=== PATIENT | female | born 1955 | race Caucasian/White ===

== ENCOUNTER → 2019-06-13 | Outpatient (CLI) | payer MEDICARE | END | disposition home or self-care (01) | LOC: LAB EV 12:49 → LAB SHORT 12:49 | DX: L73.9 Follicular disorder, unspecified (principal) | CPT/HCPCS: 87070; 87205 ==

== ENCOUNTER 2021-05-11 06:09 | Day surgery (SDC) | payer MEDICARE ==
[~2021-05-11] VITALS: Ht 149.9 cm; Wt 48.3 kg
--- NOTE | 2021-05-11 06:29 | NUR ---
PATIENT TRANSPORTED FROM LOBBY TO DAY SURGERY VIA W/C. Patient confirms NPO status and agrees with scheduled surgery. History, Chart, Medications and Allergies reviewed before start of procedure.
--- NOTE | 2021-05-11 06:45 | NUR ---
PATIENT GAVE ME PERMISSION TO FOLLOW HER THROUGH HER PROCEDURE A STUDENT NURSE.
[2021-05-11] MEDS ORDERED: LOSARTAN POTASS25 MG PO (06:48)
[2021-05-11] MEDS ORDERED: ACET500 (06:49)
[2021-05-11] MEDS ORDERED: Norco 5-325 Ta1 EACH PO (06:49)
--- NOTE | 2021-05-11 09:51 | NUR ---
05/11/21 0951 Sherri Santoro PATIENT ARRIVED TO OR, NOTED BRUSING ON LEFT OPERATIVE ARM FROM SHOULDER AREA TO ELBOW. ALSO NOTED A QUARTER SIZE SCAB AND SURROUNDING REDNESS ON LEFT ELBOW.
--- NOTE | 2021-05-11 13:13 | NUR ---
ASSUMED CARE OF PT FROM VIVI LORD. VSS. NO C/O PAIN OR NAUSEA. PT TOLERATING COFFEE, ORANGE JUICE, PUDDING.
--- NOTE | 2021-05-11 14:08 | NUR ---
Patient up to Ambulate independently. Gait steady. Discharge instructions reviewed with patient. Patient verbalizes understanding. Copy given to patient to take home. Discharged via wheelchair to private car for ride home.
== END 2021-05-11 23:22 | disposition home or self-care (01) ==
LOC: ORSCMMR 06:09 → ORD 07:30 → ORSCMMR 23:22
PROVIDERS: Orthopaedic Surgery
PROC: 0PSD04Z Reposition Left Humeral Head with Internal Fixation Device, Open Approach (ICD-10-PCS; principal; 2021-05-11 07:30)
DX: S42.202A Unspecified fracture of upper end of left humerus, initial encounter for closed fracture (principal); I10 Essential (primary) hypertension; Z79.899 Other long term (current) drug therapy
CPT/HCPCS: A9270; C1713; J0171; J0690; J1100; J1885; J2250; J2405; J2704; J3010; J7030; J7120

== ENCOUNTER 2023-05-23 10:12 | Emergency (ER) | payer MEDICARE ==
[~2023-05-23] VITALS: Ht 149.9 cm; Wt 42.2 kg
[~2023-05-23 10:12] MED LIST: ACET500; HYDCHL25 PO; LOSA50 PO; LOSARTAN POTASS25 MG PO; Norco 5-325 Ta1 EACH PO
[2023-05-23 10:53] LABS: BASOPHILS ABSOLUTE AUTO 0.12 K/mm3 (0.00-0.23); BASOPHILS PERCENT AUTO 1 % (0-2); EOSINOPHILS ABSOLUTE AUTO 0.16 K/mm3 (0.00-0.68); EOSINOPHILS PERCENT AUTO 2 % (0-6); Hematocrit 38.7 % (33.0-51.0); Hemoglobin 14.1 g/dL (11.5-16.0); IMMATURE GRAN ABSOLUTE AUTO 0.06 K/mm3 (0.00-0.10); IMMATURE GRAN PERCENT AUTO 1 % (0-1); LYMPHOCYTES ABSOLUTE AUTO 1.99 K/mm3 (0.84-5.20); LYMPHOCYTES PERCENT AUTO 21 % (21-46); MONOCYTES ABSOLUTE AUTO 0.89 K/mm3 (0.16-1.47); MONOCYTES PERCENT AUTO 9 % (4-13); Mean Corpuscular HGB 36.7 pg (26.0-34.0); Mean Corpuscular HGB Conc 36.4 g/dL (31.5-36.5); Mean Corpuscular Volume 101 fL (80-100); Mean Platelet Volume 9.9 fL (9.1-12.4); NEUTROPHILS PERCENT AUTO 67 % (41-73); Platelet Count 211 K/mm3 (150-400); RDW Coefficient Variation 13.1 % (11.7-14.2); Red Blood Cell Count 3.84 M/mm3 (3.80-5.20); White Blood Cell Count 9.72 K/mm3 (4.00-11.30)
[2023-05-23 11:22] LABS: Albumin, Blood 3.5 g/dL (3.4-5.0); Albumin/Globulin Ratio 0.9 (0.8-1.8); Calcium, Blood 9.3 mg/dL (8.5-10.1); Creatinine, Blood 0.59 mg/dL (0.40-1.00); Globulin, Blood 4.1 g/dL (2.2-4.0); Potassium, Blood 4.4 mmol/L (3.5-5.5); Total Protein, Blood 7.6 g/dL (6.4-8.2)
[2023-05-23] MEDS ORDERED: Toprol Xl25 MG PO (12:56)
[2023-05-23 13:35] VITALS: BP 160/79
== END 2023-05-23 13:36 | disposition home or self-care (01) ==
LOC: ER 10:12
PROVIDERS: Emergency Medicine
DX: I47.10 Supraventricular tachycardia, unspecified (principal); I10 Essential (primary) hypertension; F17.210 Nicotine dependence, cigarettes, uncomplicated; Z79.899 Other long term (current) drug therapy
CPT/HCPCS: 80053; 84443; 84484; 85025; 93005; 93010; 93242; 96360; 99285-25; J7030

== ENCOUNTER 2023-11-24 10:54 | Inpatient (IN) | payer MEDICARE ==
[~2023-11-24] VITALS: Ht 149.9 cm; Wt 41.8 kg
[~2023-11-24 10:54] MED LIST changes: +Toprol Xl25 MG PO
[2023-11-24] MEDS ORDERED: FOLI1 PO (11:06)
[2023-11-24 11:25] LABS: BASOPHILS ABSOLUTE AUTO 0.06 K/mm3 (0.00-0.23); BASOPHILS PERCENT AUTO 1 % (0-2); EOSINOPHILS ABSOLUTE AUTO 0.11 K/mm3 (0.00-0.68); EOSINOPHILS PERCENT AUTO 1 % (0-6); Hemoglobin 10.7 g/dL (11.5-16.0); IMMATURE GRAN ABSOLUTE AUTO 0.04 K/mm3 (0.00-0.10); IMMATURE GRAN PERCENT AUTO 1 % (0-1); LYMPHOCYTES ABSOLUTE AUTO 1.18 K/mm3 (0.84-5.20); LYMPHOCYTES PERCENT AUTO 14 % (21-46); MONOCYTES ABSOLUTE AUTO 0.75 K/mm3 (0.16-1.47); MONOCYTES PERCENT AUTO 9 % (4-13); Mean Corpuscular HGB 35.9 pg (26.0-34.0); Mean Corpuscular HGB Conc 36.9 g/dL (31.5-36.5); Mean Corpuscular Volume 97 fL (80-100); Mean Platelet Volume 10.4 fL (9.1-12.4); NEUTROPHILS ABSOLUTE AUTO 6.13 K/mm3 (1.96-9.15); NEUTROPHILS PERCENT AUTO 74 % (41-73); Platelet Count 140 K/mm3 (150-400); RDW Coefficient Variation 13.1 % (11.7-14.2); RDW Standard Deviation 46.5 fL (35.1-46.3); Red Blood Cell Count 2.98 M/mm3 (3.80-5.20); White Blood Cell Count 8.27 K/mm3 (4.00-11.30)
[2023-11-24 11:46] LABS: Albumin, Blood 2.6 g/dL (3.4-5.0); Albumin/Globulin Ratio 0.7 (0.8-1.8); Bilirubin, Total 1.6 mg/dL (0.1-1.0); Bun/Creatinine Ratio 18.2 (12.0-20.0); Calcium, Blood 8.2 mg/dL (8.5-10.1); Creatinine, Blood 0.61 mg/dL (0.40-1.00); Globulin, Blood 3.9 g/dL (2.2-4.0); Potassium, Blood 4.6 mmol/L (3.5-5.5); Total Protein, Blood 6.5 g/dL (6.4-8.2)
[2023-11-24] MEDS ORDERED: Pantoprazole Sodium 40 MG Injection IV ONE (12:05)
[2023-11-24] MEDS ORDERED: NS 1,000 ML IV SCH (12:10)
[2023-11-24] MEDS ORDERED: Ipratropium/Albuterol SulF 2.5-0.5MG/3 ML Amp INH ONE (12:20)
[2023-11-24] MEDS ORDERED: NS 1,000 ML IV ONE ×2 (16:40→17:01)
[2023-11-24] MEDS ORDERED: Midodrine 5 MG Tab PO ONE (17:00)
[2023-11-24 17:50] VITALS: BP 73/52
[2023-11-24] MEDS ORDERED: Midodrine 5 MG Tab PO SCH (18:00)
[2023-11-24 18:14] VITALS: BP 134/68
--- NOTE | 2023-11-24 18:53 | NUR ---
SHIFT SUMMARY PT TRANSFERED FROM ED AROUND 1733. PT A&OX4, LUNGS NOTED TO BE WHEEZY/DIMINISHED. ABRASION NOTED TO R KNEE 4.5CM X 3CM. PT STATED THAT SHE CAN NOT GET OUT OF BED D/T BEING SO WEAK. PT SETTLED IN ROOM AND EATING SUPPER. CONT FLUIDS AT 200/HR. PT BP NOTED TO COME BACK UP PHYSICIAN NOTIFIED AND CAME AND VISITED WITH PT.
[2023-11-24 19:39] VITALS: BP 118/60
[2023-11-24] MEDS ORDERED: Silver Sulfadiazine 1% Cream 25 APPLIC/25 GM Tube TOP SCH (21:00)
[2023-11-24] MEDS ORDERED: Apixaban 5 MG Tab PO SCH (21:00)
[2023-11-25 04:31] VITALS: BP 120/68
[2023-11-25 05:12] LABS: BASOPHILS ABSOLUTE AUTO 0.05 K/mm3 (0.00-0.23); BASOPHILS PERCENT AUTO 1 % (0-2); EOSINOPHILS ABSOLUTE AUTO 0.22 K/mm3 (0.00-0.68); EOSINOPHILS PERCENT AUTO 3 % (0-6); Hematocrit 22.6 % (33.0-51.0); Hemoglobin 8.3 g/dL (11.5-16.0); IMMATURE GRAN ABSOLUTE AUTO 0.04 K/mm3 (0.00-0.10); IMMATURE GRAN PERCENT AUTO 1 % (0-1); LYMPHOCYTES ABSOLUTE AUTO 1.42 K/mm3 (0.84-5.20); LYMPHOCYTES PERCENT AUTO 22 % (21-46); MONOCYTES ABSOLUTE AUTO 0.53 K/mm3 (0.16-1.47); MONOCYTES PERCENT AUTO 8 % (4-13); Mean Corpuscular HGB 35.9 pg (26.0-34.0); Mean Corpuscular HGB Conc 36.7 g/dL (31.5-36.5); Mean Corpuscular Volume 98 fL (80-100); Mean Platelet Volume 11.3 fL (9.1-12.4); NEUTROPHILS ABSOLUTE AUTO 4.27 K/mm3 (1.96-9.15); NEUTROPHILS PERCENT AUTO 65 % (41-73); Platelet Count 104 K/mm3 (150-400); RDW Coefficient Variation 13.2 % (11.7-14.2); RDW Standard Deviation 47.6 fL (35.1-46.3); Red Blood Cell Count 2.31 M/mm3 (3.80-5.20); White Blood Cell Count 6.53 K/mm3 (4.00-11.30)
[2023-11-25 05:31] LABS: International Normalized Ratio 1.28; Prothrombin Time Results 13.4 Sec (9.7-11.5)
--- NOTE | 2023-11-25 06:47 | NUR ---
Shift Summary Pt up to the bathroom once with assist and up once to the BSC. No complaints of any discomfort. She finished her infusion of NS and IV currently saline locked. She slept well t/o most of the night. Pt still very weak. No issues with hypotension this shift.
[2023-11-25 06:57] VITALS: BP 114/66
[2023-11-25 07:13] LABS: Albumin, Blood 2.1 g/dL (3.4-5.0); Albumin/Globulin Ratio 0.7 (0.8-1.8); Bilirubin, Total 1.3 mg/dL (0.1-1.0); Bun/Creatinine Ratio 19.7 (12.0-20.0); Calcium, Blood 7.1 mg/dL (8.5-10.1); Creatinine, Blood 0.46 mg/dL (0.40-1.00); Phosphorus, Blood 2.2 mg/dL (2.5-4.9); Potassium, Blood 3.6 mmol/L (3.5-5.5); Total Protein, Blood 5.1 g/dL (6.4-8.2)
--- NOTE | 2023-11-25 07:17 | NUR ---
Critical Lab Value - Mg 1.0 Rcvd call at 0715 that pt has a critical lab value for magnisium and 1.0. Passed this information to oncoming RN, Enma Santoyo.
[2023-11-25] MEDS ORDERED: Nicotine 21 MG PATCH TOP SCH (09:00)
[2023-11-25] MEDS ORDERED: Metoprolol Succinate 25 MG TABCR PO SCH (09:00)
[2023-11-25] MEDS ORDERED: Potassium Phosphate Dibasic 15 MM in Dextrose 5% 250 ML IV STA (09:34)
[2023-11-25] MEDS ORDERED: Magnesium Sulf 2 GM/Water 50ML 50 ML IV ONE (09:35)
[2023-11-25] MEDS ORDERED: NS 250 ML IV PRN (11:00)
[2023-11-25 15:50] VITALS: BP 150/68
--- NOTE | 2023-11-25 17:42 | NUR ---
SHIFT SUMMARY PT CONT LEVEL OF CARE WITH NO ACUTE CHANGES NOTED. PT IS A7O X4 AND COOPERATIVE WITH STAFF. ASSIST X1 WITH FWW TO RESTROOM BM NOTED TODAY. PT DENIES PAIN OR DISCOMFORT THIS SHIFT. PT NOTED TO WORK WITH THERAPY TODAY AND OT STATED TO THIS NURSE THAT THEY WOULD BE RECOMMENDING HOME HEALTH FOR PT.
[2023-11-25 19:25] VITALS: BP 106/73
[2023-11-26 03:14] VITALS: BP 115/62
--- NOTE | 2023-11-26 06:02 | NUR ---
Shift Summary No acute changes, pt slept well t/o the night. Plan is to discharge soon with home health.
[2023-11-26 07:23] VITALS: BP 138/73
[2023-11-26] MEDS ORDERED: Amoxicillin/Clavulanate K 875 MG Tab PO SCH (09:00)
[2023-11-26] MEDS ORDERED: Azithromycin 250 MG Tab PO SCH (09:00)
[2023-11-26 16:32] VITALS: BP 145/76
--- NOTE | 2023-11-26 16:33 | NUR ---
SHIFT SUMMARY PT RESTING QUIETLY AT START OF SHIFT. WOKE EASILY FOR REPORT. UP TO BSC TO VOID WITH 1P ASSIST. PT IS WEAK, BUT FEELING A LITTLE BETTER THRU OUT THE DAY. CONTINENT OF BOWEL AND BLADDER. DR VILLALOBOS IN TO SEE PT EARLY THIS AM. PO ABX STARTED FOR PNM; LUNGS T/O COARSE. PT OFFERED SHOWER THIS AM, BUT DECLINED TO PRESENT. ABLE TO MAKE NEEDS KNOWN.
[2023-11-26 19:21] VITALS: BP 140/70
[2023-11-27 04:43] VITALS: BP 141/70
--- NOTE | 2023-11-27 04:49 | NUR ---
SHIFT SUMMARY TAMARA WAS ALERT AND FULLY ORIENTED ON ASSESSMENT. PT RESTING IN BED, NO NEW COMPLAINTS THIS SHIFT, NO ACUTE EVENTS OR CHANGES TO PT CONDITION PT BANDAGE TO R KNEE REPLACED. PT RESTING IN BED AT LOW POSITION WITH CALL LIGHT IN REACH. POTENTIAL DX TODAY ON DAYSHIFT
[2023-11-27 05:20] LABS: BASOPHILS ABSOLUTE AUTO 0.07 K/mm3 (0.00-0.23); BASOPHILS PERCENT AUTO 1 % (0-2); EOSINOPHILS ABSOLUTE AUTO 0.26 K/mm3 (0.00-0.68); EOSINOPHILS PERCENT AUTO 4 % (0-6); Hematocrit 24.3 % (33.0-51.0); Hemoglobin 8.8 g/dL (11.5-16.0); IMMATURE GRAN ABSOLUTE AUTO 0.03 K/mm3 (0.00-0.10); IMMATURE GRAN PERCENT AUTO 1 % (0-1); LYMPHOCYTES ABSOLUTE AUTO 1.44 K/mm3 (0.84-5.20); LYMPHOCYTES PERCENT AUTO 22 % (21-46); MONOCYTES ABSOLUTE AUTO 0.67 K/mm3 (0.16-1.47); MONOCYTES PERCENT AUTO 10 % (4-13); Mean Corpuscular HGB 36.4 pg (26.0-34.0); Mean Corpuscular HGB Conc 36.2 g/dL (31.5-36.5); Mean Corpuscular Volume 100 fL (80-100); Mean Platelet Volume 11.2 fL (9.1-12.4); NEUTROPHILS ABSOLUTE AUTO 4.09 K/mm3 (1.96-9.15); NEUTROPHILS PERCENT AUTO 62 % (41-73); Platelet Count 108 K/mm3 (150-400); RDW Coefficient Variation 13.5 % (11.7-14.2); RDW Standard Deviation 49.4 fL (35.1-46.3); Red Blood Cell Count 2.42 M/mm3 (3.80-5.20); White Blood Cell Count 6.56 K/mm3 (4.00-11.30)
[2023-11-27 05:48] LABS: Albumin, Blood 2.1 g/dL (3.4-5.0); Albumin/Globulin Ratio 0.6 (0.8-1.8); Bilirubin, Total 1.1 mg/dL (0.1-1.0); Bun/Creatinine Ratio 11.4 (12.0-20.0); Calcium, Blood 7.5 mg/dL (8.5-10.1); Creatinine, Blood 0.44 mg/dL (0.40-1.00); Globulin, Blood 3.7 g/dL (2.2-4.0); Phosphorus, Blood 2.8 mg/dL (2.5-4.9); Potassium, Blood 3.6 mmol/L (3.5-5.5); Total Protein, Blood 5.8 g/dL (6.4-8.2)
[2023-11-27 05:50] LABS: Magnesium, Blood 1.1 mg/dL (1.6-2.4)
[2023-11-27 07:46] VITALS: BP 149/73
[2023-11-27] MEDS ORDERED: Magnesium Sulf 2 GM/Water 50ML 50 ML IV ONE (09:45)
[2023-11-27] MEDS ORDERED: Potassium Phosphate Dibasic 20 MM in Dextrose 5% 500 ML IV ONE (09:45)
[2023-11-27] MEDS ORDERED: Acetaminophen 325 MG TABLET PO PRN (12:45)
[2023-11-27 15:05] VITALS: BP 139/72
--- NOTE | 2023-11-27 16:21 | NUR ---
SHIFT SUMMARY PT AWAKE AT START OF SHIFT. WATCHING TV AND TALKING ON PHONE. DR VILLALOBOS IN EARLY TO SEE PT. LUNGS T/O IMPROVED FROM YESTERDAY. PT REMAINS WEAK, BUT SLOWLY IMPROVING. UP TO BSC WITH 1P ASSIST. C/O SANTIAGO THIS AFTERNOON; DR VILLALOBOS NOTIFIED FOR TYLENOL; ORDERED AND GIVEN PER EMAR. PT HAVING CONSTIPATION YESTERDAY WITH VERY FIRM SMALL STOOLS. PT NOW STARTING TO HAVE SM LOOSE STOOLS; DR VILLALOBOS NOTIFIED. NEW ORDERS PLACED. VISITORS TO THRU OUT THE DAY. WATCHING TV AND TALKING ON PHONE AT THIS TIME. CALL LT IN REACH.
[2023-11-27 19:28] VITALS: BP 151/72
[2023-11-27] MEDS ORDERED: Lactobacil 2-S.Thermo-Bifido 1 1 Cap PO SCH (21:00)
[2023-11-28 00:15] VITALS: BP 158/79
--- NOTE | 2023-11-28 05:00 | NUR ---
SHIFT SUMMARY AT HS, PT.A&O X3-4, ABLE TO MAKE HER NEEDS KNOWN, AND COOP WITH CARE. FEW HRS LATER, PT. C/O PAIN LOWER ABDOMEN AREA, AND APPEARED MORE CONFUSED. UNABLE TO STANDBY ASSIT WITH 2-PERSONS TO BEDSIDE COMMODE D/T WEAKNESS AND CONFUSION AND FOR SAFETY. BLADDER SCAN >380. PUREWICK PLACED. NO VOIDING. RN NOTIFIED, RN CALLED ASSEMBLER WATCH TRAIN HOSPITALIST. 1 X STRAIGHT CATH ORDER RECEIVED. PT. REQUESTING TO USE BEDSIDE COMMODE, PT. THEN VOIDED, MIXED WITH LIQUID BROWNISH STOOL, NOT ABLE TO MEASURE THE VOID AMOUNT. POST VOID SCANNER 130MLS. PT. WEARING PULL UPS. PT. MORE ORIENTED AFTER VOIDING. PT.APPEARS NOT TO HAVE PAIN. NO ACUTE DISTRESS NOTED/REPORTED THERE AFTER. WILL HANDOFF TO THE INCOMING NURSE. BED ALARM FOR SAFETY, CALL LIGHT IN REACH.
[2023-11-28 05:03] LABS: BASOPHILS ABSOLUTE AUTO 0.05 K/mm3 (0.00-0.23); BASOPHILS PERCENT AUTO 1 % (0-2); EOSINOPHILS ABSOLUTE AUTO 0.26 K/mm3 (0.00-0.68); EOSINOPHILS PERCENT AUTO 4 % (0-6); Hematocrit 23.9 % (33.0-51.0); Hemoglobin 8.7 g/dL (11.5-16.0); IMMATURE GRAN ABSOLUTE AUTO 0.02 K/mm3 (0.00-0.10); IMMATURE GRAN PERCENT AUTO 0 % (0-1); LYMPHOCYTES ABSOLUTE AUTO 1.25 K/mm3 (0.84-5.20); LYMPHOCYTES PERCENT AUTO 20 % (21-46); MONOCYTES ABSOLUTE AUTO 0.68 K/mm3 (0.16-1.47); MONOCYTES PERCENT AUTO 11 % (4-13); Mean Corpuscular HGB 35.7 pg (26.0-34.0); Mean Corpuscular HGB Conc 36.4 g/dL (31.5-36.5); Mean Corpuscular Volume 98 fL (80-100); Mean Platelet Volume 10.6 fL (9.1-12.4); NEUTROPHILS PERCENT AUTO 64 % (41-73); Platelet Count 121 K/mm3 (150-400); RDW Coefficient Variation 13.6 % (11.7-14.2); Red Blood Cell Count 2.44 M/mm3 (3.80-5.20); White Blood Cell Count 6.36 K/mm3 (4.00-11.30)
[2023-11-28 05:17] LABS: Magnesium, Blood 1.4 mg/dL (1.6-2.4)
[2023-11-28 05:18] LABS: Anion Gap 14 mmol/L (3-11); Blood Urea Nitrogen 4 mg/dL (8-24); Bun/Creatinine Ratio 9.9 (12.0-20.0); CO2, Blood 20 mmol/L (21-32); Calcium, Blood 7.6 mg/dL (8.5-10.1); Chloride, Blood 97 mmol/L (98-108); Creatinine, Blood 0.41 mg/dL (0.40-1.00); Glomerular Filtration Rate 106 (60-); Glucose, Blood 73 mg/dL (70-99); Phosphorus, Blood 3.4 mg/dL (2.5-4.9); Potassium, Blood 3.7 mmol/L (3.5-5.5); Sodium, Blood 127 mmol/L (136-145)
[2023-11-28 07:16] VITALS: BP 147/73
[2023-11-28] MEDS ORDERED: Morphine Sulfate 4 MG/1 ML Injection IV ONE (11:35)
[2023-11-28 16:33] VITALS: BP 149/67
[2023-11-28 18:47] LABS: Bun/Creatinine Ratio 7.4 (12.0-20.0); Creatinine, Blood 0.41 mg/dL (0.40-1.00); Potassium, Blood 4.4 mmol/L (3.5-5.5)
--- NOTE | 2023-11-28 19:31 | NUR ---
no acute changes. pt calls appropriately. able to make needs known. u/a pending. likely discharge tomorrow pending results. sba to bedside commode
[2023-11-28] MEDS ORDERED: Magnesium Sulf 2 GM/Water 50ML 50 ML IV STA (19:50)
[2023-11-28 20:46] VITALS: BP 156/70
[2023-11-29 03:31] VITALS: BP 143/82
--- NOTE | 2023-11-29 04:47 | NUR ---
SHIFT SUMMARY 57 YR F ADMITTED ON 11/24/23. DNR. NO ACUTE CHANGES THIS SHIFT. PT HAS HAD NO C/O PAIN OR DISCOMFORT THIS SHIFT. SHE IS A@O X 4 AND CALLS APPROPRIATELY FOR ASSISTANCE WITH BATHROOMING.
[2023-11-29 05:05] LABS: BASOPHILS ABSOLUTE AUTO 0.07 K/mm3 (0.00-0.23); BASOPHILS PERCENT AUTO 1 % (0-2); EOSINOPHILS ABSOLUTE AUTO 0.26 K/mm3 (0.00-0.68); EOSINOPHILS PERCENT AUTO 5 % (0-6); Hematocrit 25.6 % (33.0-51.0); Hemoglobin 9.4 g/dL (11.5-16.0); IMMATURE GRAN ABSOLUTE AUTO 0.02 K/mm3 (0.00-0.10); IMMATURE GRAN PERCENT AUTO 0 % (0-1); LYMPHOCYTES ABSOLUTE AUTO 1.48 K/mm3 (0.84-5.20); LYMPHOCYTES PERCENT AUTO 26 % (21-46); MONOCYTES ABSOLUTE AUTO 0.83 K/mm3 (0.16-1.47); MONOCYTES PERCENT AUTO 14 % (4-13); Mean Corpuscular HGB Conc 36.7 g/dL (31.5-36.5); Mean Corpuscular Volume 98 fL (80-100); Mean Platelet Volume 10.4 fL (9.1-12.4); NEUTROPHILS ABSOLUTE AUTO 3.11 K/mm3 (1.96-9.15); NEUTROPHILS PERCENT AUTO 54 % (41-73); Platelet Count 144 K/mm3 (150-400); RDW Standard Deviation 49.5 fL (35.1-46.3); Red Blood Cell Count 2.61 M/mm3 (3.80-5.20); White Blood Cell Count 5.77 K/mm3 (4.00-11.30)
[2023-11-29 06:02] LABS: Albumin, Blood 2.1 g/dL (3.4-5.0); Albumin/Globulin Ratio 0.5 (0.8-1.8); Bilirubin, Total 0.8 mg/dL (0.1-1.0); Calcium, Blood 8.1 mg/dL (8.5-10.1); Creatinine, Blood 0.43 mg/dL (0.40-1.00); Globulin, Blood 3.9 g/dL (2.2-4.0); Potassium, Blood 3.6 mmol/L (3.5-5.5)
[2023-11-29 07:22] VITALS: BP 142/76
[2023-11-29 13:00] VITALS: BP 141/75
--- NOTE | 2023-11-29 15:11 | NUR ---
MD ORDERED REFERRAL TO [facility] FOR LUNG AND LIVER MASS BIOPSY. RADIOLOGY CONTACTED AND ORDER PLACED FOR CT WITH LIVER BIOPSY, MD AWARE. RADIOLOGY INFORMED THAT PATIENT HAD ELIQUIS THIS AM AROUND 0815. MD ORDERED TO HOLD ELIQUIS UNTIL BIPOSY IS OBTAINED.
[2023-11-29 16:28] VITALS: BP 148/82
--- NOTE | 2023-11-29 18:15 | NUR ---
SHIFT SUMMARY PATIENT A/OX4, ABLE TO MAKE NEEDS KNOWN. INCONTINENT OF BOWEL WITH LOOSE STOOLS. PATIENT 1 PERSON TRANSFER WITH [facility]. ELIQUIS ON HOLD UNTIL BIOPSY TO LIVER OBTAINED. PATIENT'S FAMILY CALLED TO INFORM THAT THERE IS A FAMILY HISTORY OF HEREDITARY HEMOCHROMOTOSIS. NO OTHER COCNERNS AT THIS TIME.
[2023-11-29 19:56] VITALS: BP 148/80
[2023-11-30 02:16] VITALS: BP 126/78
--- NOTE | 2023-11-30 04:01 | NUR ---
SHIFT SUMMARY PT. IS A&O X4, SOMETIMES FORGETFUL, COOP WITH CARE, AND ABLE TO MAKE HER NEEDS KNOWN. NO ACUTE CHANGES/EVENTS/DISTRESS NOTED/REPORTED DURING THIS SHIFT. PT. HAS BEEN RESTING EYES CLOSED, VSS, W/O ANY RESPIRATORY OR CARDIAC DISTRESS. POSSIBLE LIVER BIOPSY TODAY. WILL HANDOFF TO THE INCOMING SHIFT NURSE, BED AT LOWEST POSITION, CALL LIGHT WITHIN REACH.
[2023-11-30 04:40] LABS: BASOPHILS ABSOLUTE AUTO 0.04 K/mm3 (0.00-0.23); BASOPHILS PERCENT AUTO 1 % (0-2); EOSINOPHILS ABSOLUTE AUTO 0.21 K/mm3 (0.00-0.68); EOSINOPHILS PERCENT AUTO 4 % (0-6); Hematocrit 23.3 % (33.0-51.0); Hemoglobin 8.5 g/dL (11.5-16.0); IMMATURE GRAN ABSOLUTE AUTO 0.02 K/mm3 (0.00-0.10); IMMATURE GRAN PERCENT AUTO 0 % (0-1); LYMPHOCYTES ABSOLUTE AUTO 1.44 K/mm3 (0.84-5.20); LYMPHOCYTES PERCENT AUTO 28 % (21-46); MONOCYTES ABSOLUTE AUTO 0.81 K/mm3 (0.16-1.47); MONOCYTES PERCENT AUTO 16 % (4-13); Mean Corpuscular HGB Conc 36.5 g/dL (31.5-36.5); Mean Corpuscular Volume 99 fL (80-100); Mean Platelet Volume 10.4 fL (9.1-12.4); NEUTROPHILS ABSOLUTE AUTO 2.58 K/mm3 (1.96-9.15); NEUTROPHILS PERCENT AUTO 51 % (41-73); Platelet Count 144 K/mm3 (150-400); RDW Coefficient Variation 13.9 % (11.7-14.2); RDW Standard Deviation 49.6 fL (35.1-46.3); Red Blood Cell Count 2.36 M/mm3 (3.80-5.20)
--- NOTE | 2023-11-30 05:04 | NUR ---
PT.HAS BEEN NPO AFTER MIDNIGHT, IF NEEDED FOR LIVER BIOPSY.
[2023-11-30 05:42] LABS: Albumin, Blood 2.1 g/dL (3.4-5.0); Albumin/Globulin Ratio 0.6 (0.8-1.8); Bilirubin, Total 0.7 mg/dL (0.1-1.0); Bun/Creatinine Ratio 4.8 (12.0-20.0); Calcium, Blood 8.1 mg/dL (8.5-10.1); Creatinine, Blood 0.42 mg/dL (0.40-1.00); Globulin, Blood 3.6 g/dL (2.2-4.0); Potassium, Blood 3.3 mmol/L (3.5-5.5); Total Protein, Blood 5.7 g/dL (6.4-8.2)
[2023-11-30 07:56] VITALS: BP 132/76
[2023-11-30] MEDS ORDERED: Thiamine HCl 100 MG Tab PO SCH (09:00)
--- NOTE | 2023-11-30 11:03 | NUR ---
TELEPHONE ORDERS CALLED RADIOLOGY TO CONFIRM LIVER BIOPSY TODAY FOR PATIENT. MECHANICAL SERVICE TECHNICIAN STATED PROCEDURE WAS CANCELLED DUE TO PATIENT RECIEVING ELIQUIS YESTERDAY MORNING. ELIQUIS HAS BEEN HELD SINCE YESTERDAY AM. SPOKE WITH MD AND NEW ORDERS FOR ULTRASOUND LIVER BIOPSY OBTAINED. ALSO NOTIFIED MD OF PATIENT'S HEMORRHOIDS AND LEVATED BP WITH SCHEDULED MIDODRINE TID. MIDODRINE DISCONTINUED AND PREPARATION H ORDERED PRN.
[2023-11-30] MEDS ORDERED: Phenyleph/Mineral Oil/Petrolat 1 APPLIC/57 GM Tube PR SCH (11:05)
--- NOTE | 2023-11-30 11:30 | NUR ---
SPOKE WITH SHABBIR FROM RADIOLOGY IN REGARDS TO ULTRASOUND LIVER BIOPSY. DR. DOMÍNGUEZ REQUESTING TO SPEAKE WITH DR. TORREZ TO DISCUSS BIOPSY ORDER. SHABBIR STATED SHE IS GETTING THEM IN CONTACT TO DISCUSS. DUE TO ELIQUIS BEING GIVEN YESTERDAY, BIOPSY WILL NOT BE OBTAINED TODAY.
[2023-11-30 15:52] VITALS: BP 150/79
[2023-11-30 19:49] VITALS: BP 149/83
[2023-12-01 05:10] LABS: BASOPHILS ABSOLUTE AUTO 0.09 K/mm3 (0.00-0.23); BASOPHILS PERCENT AUTO 2 % (0-2); EOSINOPHILS ABSOLUTE AUTO 0.23 K/mm3 (0.00-0.68); EOSINOPHILS PERCENT AUTO 5 % (0-6); Hematocrit 24.7 % (33.0-51.0); Hemoglobin 8.9 g/dL (11.5-16.0); IMMATURE GRAN ABSOLUTE AUTO 0.01 K/mm3 (0.00-0.10); IMMATURE GRAN PERCENT AUTO 0 % (0-1); LYMPHOCYTES ABSOLUTE AUTO 1.42 K/mm3 (0.84-5.20); LYMPHOCYTES PERCENT AUTO 29 % (21-46); MONOCYTES ABSOLUTE AUTO 0.65 K/mm3 (0.16-1.47); MONOCYTES PERCENT AUTO 13 % (4-13); Mean Corpuscular HGB 36.2 pg (26.0-34.0); Mean Corpuscular Volume 100 fL (80-100); Mean Platelet Volume 10.4 fL (9.1-12.4); NEUTROPHILS ABSOLUTE AUTO 2.53 K/mm3 (1.96-9.15); NEUTROPHILS PERCENT AUTO 51 % (41-73); Platelet Count 153 K/mm3 (150-400); RDW Standard Deviation 51.4 fL (35.1-46.3); Red Blood Cell Count 2.46 M/mm3 (3.80-5.20); White Blood Cell Count 4.93 K/mm3 (4.00-11.30)
[2023-12-01 05:35] VITALS: BP 131/72
[2023-12-01 05:50] LABS: Albumin, Blood 2.1 g/dL (3.4-5.0); Albumin/Globulin Ratio 0.6 (0.8-1.8); Bilirubin, Total 0.7 mg/dL (0.1-1.0); Bun/Creatinine Ratio 6.8 (12.0-20.0); Calcium, Blood 7.9 mg/dL (8.5-10.1); Creatinine, Blood 0.44 mg/dL (0.40-1.00); Globulin, Blood 3.7 g/dL (2.2-4.0); Potassium, Blood 3.2 mmol/L (3.5-5.5); Total Protein, Blood 5.8 g/dL (6.4-8.2)
--- NOTE | 2023-12-01 06:34 | NUR ---
NO ACUTE EVENTS OR DISTRESS DURING THIS SHIFT, BED AT THE LOWEST POSITION, CALL LIGHT IN REACH. PT. DENIES ANY PAIN OR DISCOMFORT. NO COMPLAINTS OFFERED PER PT.
[2023-12-01 07:21] VITALS: BP 143/75
--- NOTE | 2023-12-01 13:27 | NUR ---
SPOKE WITH DR. COLVIN IN REGARDS TO PLAN FOR PT. DR. COLVIN ASKED TO CALL IR TO ASK IF PT WAS OF SCHEDULE FOR BX. AFTER FURTHER REVIEW INTO CHART BX WAS CANCELLED INSTEAD OF POSTPONED. DR. COLVIN UPDATED AND GAVE TELEPHONE ORDER FOR LIVER BX TODAY. SPOKE WITH RN FROM IR STATTING DR. ODONNELL WOULD LOOK OVER PT CHART AND WOULD GET BACK TO ME IN 1-1.5 HOURS. TOLD IR RN PT HAS NOT TAKEN ELIQUIS SINCE AM MEDS ON 11/29/23. AWAITING UPDATE AT THIS TIME. DR. COLVIN AWARE OF PLAN.
[2023-12-01] MEDS ORDERED: Potassium Chloride 20 MEQ TabCR PO ONE (15:00)
[2023-12-01] MEDS ORDERED: AMOCLA875 PO (15:01)
[2023-12-01] MEDS ORDERED: SILVADENE20 G8 TOP (15:02)
[2023-12-01] MEDS ORDERED: ELIQUIS5 M2 PO (15:02)
[2023-12-01] MEDS ORDERED: NICO21TP TOP (15:02)
--- NOTE | 2023-12-01 15:36 | NUR ---
DISCHARGE: PT D/C @1530 VIA WHEELCHAIR WITH SO. MEDICATIONS FAXED TO [facility] [address]. IV REMOVED BY RESOURCING CONSULTANT W/O COMPLICATIONS. PT HAS FOLLOW-UP APPOINTMENT WITH PCP ON 12/08/23 @4:20 PM. MEDICATIONS EXPLAINED TO PT. PT TO RECEIVE PET/CT SCAN OUTPT. NO QUESTIONS AT TIE OF D/C.
[2023-12-06] MEDS ORDERED: Lipitor10 MG PO (13:20)
== END 2023-12-01 15:30 | disposition home health service (06) | DRG 308 ==
LOC: ER 10:54 → MEDS 13:16
PROVIDERS: Emergency Medicine; Internal Medicine; ADMIT Family Medicine
DX: I48.91 Unspecified atrial fibrillation (principal); J18.9 Pneumonia, unspecified organism; E87.1 Hypo-osmolality and hyponatremia; K76.0 Fatty (change of) liver, not elsewhere classified; E83.42 Hypomagnesemia; Z66 Do not resuscitate; M41.9 Scoliosis, unspecified; K70.31 Alcoholic cirrhosis of liver with ascites; R91.1 Solitary pulmonary nodule; F10.10 Alcohol abuse, uncomplicated; L08.9 Local infection of the skin and subcutaneous tissue, unspecified; I10 Essential (primary) hypertension; F17.200 Nicotine dependence, unspecified, uncomplicated; D64.9 Anemia, unspecified; D69.6 Thrombocytopenia, unspecified; E87.8 Other disorders of electrolyte and fluid balance, not elsewhere classified; S81.011A Laceration without foreign body, right knee, initial encounter; W19.XXXA Unspecified fall, initial encounter; M51.35 Other intervertebral disc degeneration, thoracolumbar region
CPT/HCPCS: 36415; 71046; 71260; 74160; 74183; 80048; 80053; 80069; 82105; 82607; 82746; 83735; 83880; 83930; 83935; 84100; 84145; 84300; 84484; 85025; 85610; 93005; 93010; 93306; 94644; 94664; 96361; 96374; 97110; 97116; 97161; 97165; 97530; 97530-CQ; 97535; 99285-25; A9270; A9581; C9113; J2270; J3475; J7030; J7050; J7060; Q9967

== ENCOUNTER 2023-12-02 15:08 | Emergency (ER) | payer MEDICARE ==
[~2023-12-02] VITALS: Ht 157.5 cm; Wt 54.4 kg
[~2023-12-02 15:08] MED LIST changes: +AMOCLA875 PO; +ELIQUIS5 M2 PO; +FOLI1 PO; +LOSA25 PO; -LOSA50 PO; +NICO21TP TOP; +SILVADENE20 G8 TOP
[2023-12-02 15:56] LABS: BASOPHILS ABSOLUTE AUTO 0.07 K/mm3 (0.00-0.23); BASOPHILS PERCENT AUTO 1 % (0-2); EOSINOPHILS ABSOLUTE AUTO 0.17 K/mm3 (0.00-0.68); EOSINOPHILS PERCENT AUTO 3 % (0-6); Hematocrit 27.7 % (33.0-51.0); Hemoglobin 9.7 g/dL (11.5-16.0); IMMATURE GRAN ABSOLUTE AUTO 0.03 K/mm3 (0.00-0.10); IMMATURE GRAN PERCENT AUTO 1 % (0-1); LYMPHOCYTES ABSOLUTE AUTO 1.41 K/mm3 (0.84-5.20); LYMPHOCYTES PERCENT AUTO 21 % (21-46); MONOCYTES PERCENT AUTO 9 % (4-13); Mean Corpuscular HGB 36.2 pg (26.0-34.0); Mean Corpuscular Volume 103 fL (80-100); NEUTROPHILS PERCENT AUTO 65 % (41-73); Platelet Count 191 K/mm3 (150-400); RDW Coefficient Variation 14.2 % (11.7-14.2); RDW Standard Deviation 53.6 fL (35.1-46.3); Red Blood Cell Count 2.68 M/mm3 (3.80-5.20); White Blood Cell Count 6.58 K/mm3 (4.00-11.30)
[2023-12-02 16:06] LABS: Albumin, Blood 2.5 g/dL (3.4-5.0); Albumin/Globulin Ratio 0.6 (0.8-1.8); Bilirubin, Total 0.7 mg/dL (0.1-1.0); Calcium, Blood 8.3 mg/dL (8.5-10.1); Creatinine, Blood 0.5 mg/dL (0.40-1.00); Globulin, Blood 4.3 g/dL (2.2-4.0); International Normalized Ratio 1.08; Potassium, Blood 3.9 mmol/L (3.5-5.5); Prothrombin Time Results 11.5 Sec (9.7-11.5); Total Protein, Blood 6.8 g/dL (6.4-8.2)
[2023-12-02 17:30] VITALS: BP 153/86
[2023-12-06] MEDS ORDERED: Lipitor10 MG PO (13:20)
== END 2023-12-02 17:31 | disposition home or self-care (01) ==
LOC: ER 15:08
PROVIDERS: Student in an Organized Health Care Education/Training Program
DX: R41.82 Altered mental status, unspecified (principal); Z79.899 Other long term (current) drug therapy; I10 Essential (primary) hypertension; E78.5 Hyperlipidemia, unspecified; F17.210 Nicotine dependence, cigarettes, uncomplicated
CPT/HCPCS: 70450; 80053; 85025; 85610; 93005; 93010; 99285-25